=== PATIENT | female | born 1985 | race American Indian/Alaskan Native ===

== ENCOUNTER 2016-07-14 10:18 | Emergency (ER) | payer MEDICAID ==
[2016-07-14 11:53] LABS: Alanine Aminotransferase 13 units/L (7-56); Albumin 4.8 g/dL (3.9-5); Albumin/Globulin Ratio 1.5 %; Alkaline Phosphatase 54 units/L (35-129); Anion Gap 20 mmol/L; BUN/Creatinine Ratio 18.57; Blood Urea Nitrogen 13 mg/dL (7-17); Calcium 9.4 mg/dL (8.4-10.2); Carbon Dioxide 20 mmol/L (22-30); Chloride 98.4 mmol/L (98-107); Glucose 102 mg/dL (65-100); Lipase 10 units/L (13-60); Potassium 3.9 mmol/L (3.6-5.0); Sodium 134 mmol/L (137-145); Total Protein 7.9 g/dL (6.3-8.2)
[2016-07-14 11:58] LABS: Basophils % (Auto) 0.1 % (0.0-1.8); Eosinophils % (Auto) 0.2 % (0.0-4.3); Hematocrit 40.2 % (30.3-42.9); Hemoglobin 13.3 gm/dl (10.1-14.3); Mean Corpuscular HGB Conc 33 % (30-34); Mean Corpuscular Hemoglobin 31 pg (28-32); Mean Corpuscular Volume 95 fl (79-97); Platelet Count 167 K/mm3 (140-440); Red Blood Count 4.23 M/mm3 (3.65-5.03); Red Cell Distribution Width 14.2 % (13.2-15.2); White Blood Count 8.5 K/mm3 (4.5-11.0)
[2016-07-14] MEDS ORDERED: NACL 0.9% 1000 ML 1,000 ML IV ONE (16:57)
[2016-07-14] MEDS ORDERED: ZOFRAN IV ONE (16:57)
[2016-07-14] MEDS ORDERED: DILAUDID IV ONE (16:58)
--- NOTE | 2016-07-14 16:59 | Emergency Department Report ---
ED General Adult HPI - General Chief complaint: Abdominal Pain Stated complaint: VOMITIG/DIARRHEA/ABD PAIN Time Seen by Provider: 07/14/16 16:52 Source: patient, RN notes reviewed, old records reviewed Mode of arrival: Ambulatory Limitations: No Limitations - History of Present Illness Initial comments: This is a 30-year-old female. She reports a past medical history of irritable bowel syndrome. 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 Has a history of tubal ligation. She is not . The patient presents to the ER complaining of cramping abdominal pain, nausea, vomiting and diarrhea. Positive dysuria. Emesis is clear, nonbloody and nonbilious, no hematemesis, reports 6-7 episodes of nausea and vomiting. She describes the diarrhea is watery, loose, thinks she's had 2-3 episodes. Has mild diffuse abdominal cramping. No vaginal discharge. No pelvic pain. She reports her symptoms are typically improved with IV medication, that her symptoms today feel similar to prior episodes of IBS flare/exacerbation. -: Gradual Location: abdomen Quality: aching Consistency: intermittent Improves with: medication Worsens with: movement Associated Symptoms: loss of appetite, nausea/vomiting. denies: confusion, chest pain, cough, diaphoresis - Related Data Previous Rx's Medication Instructions Recorded Last Taken Type Acetaminophen/Codeine [Tylenol #3] 1 tab PO QHS #7 tablet 10/04/14 Unknown Rx Nitrofurantoin [place]/M-Cryst 100 mg PO Q12HR #6 capsule 10/04/14 Unknown Rx [Macrobid CAP] Ondansetron [Zofran ODT TAB] 4 mg PO Q8HR #6 tab.rapdis 10/04/14 Unknown Rx Phenazopyridine HCl [Pyridium] 200 mg PO TID #6 tablet 10/04/14 Unknown Rx Doxycycline [Vibramycin CAP] 100 mg PO Q12HR #20 capsule 10/05/14 Unknown Rx Promethazine [Phenergan TAB] 25 mg PO Q8HR PRN #10 tab 10/05/14 Unknown Rx HYDROcodone/APAP 5-325 [[place] 1 each PO Q6HR PRN #12 tablet 06/10/15 Unknown Rx 5/325] Ondansetron [Zofran Odt] 4 mg PO Q8H PRN #10 tab.rapdis 06/10/15 Unknown Rx Dicyclomine [Bentyl] 10 mg PO QID PRN #20 capsule 07/14/16 Unknown Rx Famotidine [Pepcid] 20 mg PO QDAY #30 tablet 07/14/16 Unknown Rx Ondansetron [Zofran Odt] 4 mg PO QID PRN #20 tab.rapdis 07/14/16 Unknown Rx Promethazine [Phenergan SUPPOS] 50 mg [place] Q6H PRN #20 supp.rect 07/14/16 Unknown Rx Allergies Allergy/AdvReac Type Severity Reaction Status Date / Time amoxicillin AdvReac Hives Verified 10/04/14 11:33 ED Review of Systems ROS: Stated complaint: VOMITIG/DIARRHEA/ABD PAIN Other details as noted in HPI Constitutional: denies: fever, malaise Eyes: denies: vision change ENT: denies: epistaxis Respiratory: denies: cough Cardiovascular: denies: chest pain Gastrointestinal: abdominal pain, nausea, vomiting Genitourinary: dysuria Musculoskeletal: denies: back pain Skin: denies: rash, lesions Neurological: denies: weakness Psychiatric: anxiety ED Past Medical Hx - Past Medical History Additional medical history: IBS - Surgical History Additional Surgical History: Tubal Ligation - Social History Smoking Status: Current Every Day Smoker Substance Use Type: Marijuana - Medications Home Medications: Home Medications Medication Instructions Recorded Confirmed Last Taken Type Acetaminophen/Codeine [Tylenol #3] 1 tab PO QHS #7 tablet 10/04/14 Unknown Rx Nitrofurantoin [place]/M-Cryst 100 mg PO Q12HR #6 capsule 10/04/14 Unknown Rx [Macrobid CAP] Ondansetron [Zofran ODT TAB] 4 mg PO Q8HR #6 tab.rapdis 10/04/14 Unknown Rx Phenazopyridine HCl [Pyridium] 200 mg PO TID #6 tablet 10/04/14 Unknown Rx Doxycycline [Vibramycin CAP] 100 mg PO Q12HR #20 capsule 10/05/14 Unknown Rx Promethazine [Phenergan TAB] 25 mg PO Q8HR PRN #10 tab 10/05/14 Unknown Rx HYDROcodone/APAP 5-325 [[place] 1 each PO Q6HR PRN #12 tablet 06/10/15 Unknown Rx 5/325] Ondansetron [Zofran Odt] 4 mg PO Q8H PRN #10 tab.rapdis 06/10/15 Unknown Rx Dicyclomine [Bentyl] 10 mg PO QID PRN #20 capsule 07/14/16 Unknown Rx Famotidine [Pepcid] 20 mg PO QDAY #30 tablet 07/14/16 Unknown Rx Ondansetron [Zofran Odt] 4 mg PO QID PRN #20 tab.rapdis 07/14/16 Unknown Rx Promethazine [Phenergan SUPPOS] 50 mg [place] Q6H PRN #20 supp.rect 07/14/16 Unknown Rx ED Physical Exam - General Limitations: No Limitations General appearance: alert, in no apparent distress - Head Head exam: Present: atraumatic, normocephalic - Eye Eye exam: Present: normal appearance, EOMI. Absent: nystagmus - ENT ENT exam: Present: normal exam, normal orophraynx, mucous membranes moist, normal external ear exam - Neck Neck exam: Present: normal inspection, full ROM. Absent: tenderness, meningismus - Respiratory Respiratory exam: Present: normal lung sounds bilaterally. Absent: respiratory distress, wheezes, rales, rhonchi, stridor, chest wall tenderness, accessory muscle use, decreased breath sounds, prolonged expiratory - Cardiovascular Cardiovascular Exam: Present: regular rate, normal rhythm, normal heart sounds. Absent: bradycardia, tachycardia, irregular rhythm, systolic murmur, diastolic murmur, rubs, gallop - GI/Abdominal GI/Abdominal exam: Present: soft, normal bowel sounds. Absent: distended, tenderness, guarding, rebound, rigid, pulsatile mass - External exam: Present: normal external exam Speculum exam: Present: normal speculum exam. Absent: cervical discharge, vaginal bleeding Bi-manual exam: Present: normal bi-manual exam, other (during the gynecologic examination, I am escorted by Yee Valentine). Absent: cervical motion tendernes, adnexal tenderness, adnexal mass - Extremities Exam Extremities exam: Present: normal inspection, full ROM, normal capillary refill. Absent: tenderness, pedal edema, joint swelling, calf tenderness - Back Exam Back exam: Present: normal inspection, full ROM. Absent: tenderness, CVA tenderness (R), CVA tenderness (L), muscle spasm, paraspinal tenderness, vertebral tenderness - Neurological Exam Neurological exam: Present: alert, oriented X3, normal gait, other (Extraocular movements intact. Tongue midline. No facial droop. Facial sensation intact to light touch in the V1, V2, V3 distribution bilaterally. 5 and 5 strength in 4 extremities.. Sensation is intact to light touch in 4 extremities.). Absent : motor sensory deficit - Psychiatric Psychiatric exam: Present: anxious, other (prior to being medicated, the patient is laughing inappropriately during the examination. After medication, she is resting currently, playing on a cellular phone.) - Skin Skin exam: Present: warm, dry, intact, normal color. Absent: rash ED Course Vital Signs 07/14/16 07/14/16 07/14/16 11:12 16:03 16:04 Temperature 98.1 F Pulse Rate 102 H 95 H 91 H Respiratory 20 16 22 Rate Blood Pressure 133/72 120/71 O2 Sat by Pulse 100 100 100 Oximetry - Reevaluation(s) Reevaluation #1: 07/14/16 18:16 Differential diagnosis: Constipation, cyclic vomiting syndrome, urinary tract infection, ,, IBS flare/exacerbation Assessment and plan: 30-year-old female with reported history of IBS with abdominal pain, nausea and vomiting. Physical examination is unremarkable. Laboratory studies unremarkable. She is not . She is treated symptomatically. On repeat examination, abdominal exam is benign , tachycardia resolved, she is not , she is tolerating liquid feeds. She is presented to this ER in the past for similar symptoms, given her benign clinical examination, I don't think she requires advanced imaging at this time. She is able to follow up with outpatient gastroenterology. Her urinalysis is pending at this time. 07/14/16 18:16 ED Medical Decision Making - Lab Data Result diagrams: 07/14/16 11:18 07/14/16 11:18 Vital Signs 07/14/16 07/14/16 07/14/16 11:12 16:03 16:04 Temperature 98.1 F Pulse Rate 102 H 95 H 91 H Respiratory 20 16 22 Rate Blood Pressure 133/72 120/71 O2 Sat by Pulse 100 100 100 Oximetry Labs 07/14/16 07/14/16 07/14/16 11:18 11:18 17:11 WBC 8.5 RBC 4.23 Hgb 13.3 Hct 40.2 MCV 95 MCH 31 MCHC 33 RDW 14.2 Plt Count 167 Lymph % (Auto) 4.2 L [place] % (Auto) 7.3 Eos % (Auto) 0.2 Baso % (Auto) 0.1 Lymph # 0.4 L [place] # 0.6 Eos # 0.0 Baso # 0.0 Seg Neutrophils % 88.2 H Seg Neutrophils # 7.5 Sodium 134 L Potassium 3.9 Chloride 98.4 Carbon Dioxide 20 L Anion Gap 20 BUN 13 Creatinine 0.7 Estimated GFR > 60 BUN/Creatinine Ratio 18.57 Glucose 102 H Calcium 9.4 Total Bilirubin 1.00 AST 19 ALT 13 Alkaline Phosphatase 54 Total Protein 7.9 Albumin 4.8 Albumin/Globulin Ratio 1.5 Lipase 10 L HCG, Quant < 2 Critical care attestation.: If time is entered above; I have spent that time in minutes in the direct care of this critically ill patient, excluding procedure time. ED Disposition Clinical Impression: Abdominal pain Disposition: DISCHARGED TO HOME OR SELFCARE Is pt being admited?: No Does the pt Need Aspirin: No Condition: Stable Instructions: Abdominal Pain (ED) Additional Instructions: Cultures were sent today, results will be available the next 3-5 days. Have a primary care doctor or rack puncher contact the medical records department to obtain culture results. Follow-up with a primary care doctor or gastroenterology specialist within the next 7-[address] Rosas is a local primary care doctor. Dr. Jackson is a local gastroenterology specialist. Return to the ER right away with new pain, worsened pain, migration of pain, fevers or chills, intractable nausea or vomiting, inability to tolerate liquid feeds. Referrals: PRIMARY MD BALAJI [Primary Care Provider] - 3-5 Days RAÚL ROSAS MD [Staff Physician] - 3-5 Days VINCENT JACKSON MD [Staff Physician] - 3-5 Days
[2016-07-14 18:45] LABS: Bilirubin,Urine NEG (Negative); Blood,Urine LG (Negative); Ketones,Urine 20 mg/dL (Negative); Leukocyte Esterase,Urine TR (Negative); Mucus,Urine 3+ /HPF; Nitrite,Urine NEG (Negative); Urobilinogen,Urine < 2.0 mg/dL (<2.0)
[2016-07-14 19:18] VITALS: BP 126/72
== END 2016-07-14 19:35 | disposition home or self-care (01) ==
LOC: ED 10:18
DX: R10.9 Unspecified abdominal pain (principal); F17.200 Nicotine dependence, unspecified, uncomplicated
CPT/HCPCS: 36415; 80053; 81001; 81025; 83690; 84702; 85025; 87210; 87591; 96361; 96374; 96375; 99284; J1170; J2405; J7030

== ENCOUNTER 2016-11-14 05:44 | Emergency (ER) | payer SELFPAY ==
[2016-11-14 06:59] LABS: Basophils % (Auto) 0.6 % (0.0-1.8); Eosinophils % (Auto) 0.7 % (0.0-4.3); Hematocrit 37.7 % (30.3-42.9); Hemoglobin 12.6 gm/dl (10.1-14.3); Mean Corpuscular HGB Conc 33 % (30-34); Mean Corpuscular Hemoglobin 31 pg (28-32); Mean Corpuscular Volume 94 fl (79-97); Platelet Count 161 K/mm3 (140-440); Red Blood Count 4.03 M/mm3 (3.65-5.03); Red Cell Distribution Width 13.9 % (13.2-15.2); White Blood Count 8.3 K/mm3 (4.5-11.0)
[2016-11-14 07:16] LABS: Anion Gap 20 mmol/L; Blood Urea Nitrogen 9 mg/dL (7-17); Calcium 9.3 mg/dL (8.4-10.2); Carbon Dioxide 20 mmol/L (22-30); Chloride 103.1 mmol/L (98-107); Glucose 116 mg/dL (65-100); Potassium 3.4 mmol/L (3.6-5.0); Sodium 140 mmol/L (137-145)
[2016-11-14] MEDS ORDERED: NACL 0.9% 1000 ML 1,000 ML IV ONE (07:40)
[2016-11-14] MEDS ORDERED: ZOFRAN IV ONE (07:40)
[2016-11-14] MEDS ORDERED: MORPHINE IV ONE (07:44)
[2016-11-14] MEDS ORDERED: ATIVAN IV ONE (07:45)
[2016-11-14] MEDS ORDERED: BENADRYL IV ONE (07:45)
--- NOTE | 2016-11-14 07:52 | Emergency Department Report ---
HPI - General Chief Complaint: Nausea/Vomiting/Diarrhea Time Seen by Provider: 11/14/16 07:39 - HPI HPI: Room 19 The patient is a 31-year-old female presented with a chief complaint of abdominal pain. Patient states she has a history of irritable bowel syndrome and it has "flared up" starting last night at approximately 21:30. Patient admits to diffuse abdominal pain associated with nausea vomiting and diarrhea. Patient denies any history of fever. The patient states her presentation is consistent with her previous bouts of irritable bowel syndrome. Location: Abdomen Duration: Constant since 2129 Quality: Pain consistent with previous bouts of IBS Severity: 10/20 Modifying factors: [see above] Context: [see above] Mode of transportation: Unknown ED Past Medical Hx - Past Medical History Previous Medical History?: Yes Additional medical history: IBS - Surgical History Additional Surgical History: Tubal Ligation - Family History Family history: no significant - Social History Smoking Status: Current Every Day Smoker (1/3 pack per day) Substance Use Type: None (denies illicit drug use) - Medications Home Medications: Home Medications Medication Instructions Recorded Confirmed Last Taken Type Acetaminophen/Codeine [Tylenol #3] 1 tab PO QHS #7 tablet 10/04/14 Unknown Rx Nitrofurantoin [place]/M-Cryst 100 mg PO Q12HR #6 capsule 10/04/14 Unknown Rx [Macrobid CAP] Ondansetron [Zofran ODT TAB] 4 mg PO Q8HR #6 tab.rapdis 10/04/14 Unknown Rx Phenazopyridine HCl [Pyridium] 200 mg PO TID #6 tablet 10/04/14 Unknown Rx Doxycycline [Vibramycin CAP] 100 mg PO Q12HR #20 capsule 10/05/14 Unknown Rx Promethazine [Phenergan TAB] 25 mg PO Q8HR PRN #10 tab 10/05/14 Unknown Rx HYDROcodone/APAP 5-325 [[place] 1 each PO Q6HR PRN #12 tablet 06/10/15 Unknown Rx 5/325] Ondansetron [Zofran Odt] 4 mg PO Q8H PRN #10 tab.rapdis 06/10/15 Unknown Rx Dicyclomine [Bentyl] 10 mg PO QID PRN #20 capsule 07/14/16 Unknown Rx Famotidine [Pepcid] 20 mg PO QDAY #30 tablet 07/14/16 Unknown Rx Ondansetron [Zofran Odt] 4 mg PO QID PRN #20 tab.rapdis 07/14/16 Unknown Rx Promethazine [Phenergan SUPPOS] 50 mg ID Q6H PRN #20 supp.rect 07/14/16 Unknown Rx Metoclopramide [Reglan] 10 mg PO TID #30 tab 11/14/16 Unknown Rx Promethazine [Phenergan] 25 mg ID Q6HR PRN #5 supp.rect 11/14/16 Unknown Rx traMADol [Ultram] 50 mg PO Q6HR PRN #14 tablet 11/14/16 Unknown Rx ED Review of Systems ROS: Stated complaint: STOMACH PAIN/VOMITING Other details as noted in HPI Comment: All other systems reviewed and negative Constitutional: denies: chills, fever Eyes: denies: eye pain, eye discharge, vision change ENT: denies: ear pain, throat pain Respiratory: denies: cough, shortness of breath, wheezing Cardiovascular: denies: chest pain, palpitations Endocrine: no symptoms reported Gastrointestinal: abdominal pain, nausea, vomiting, diarrhea Genitourinary: denies: urgency, dysuria, discharge Musculoskeletal: denies: back pain, joint swelling, arthralgia Skin: denies: rash, lesions Neurological: denies: headache, weakness, paresthesias Psychiatric: denies: anxiety, depression Hematological/Lymphatic: denies: easy bleeding, easy bruising Physical Exam - Physical Exam Vital Signs: Vital Signs 11/14/16 11/14/16 06:16 07:07 Temperature 97.5 F L 97.8 F Pulse Rate 85 78 Respiratory 20 18 Rate Blood Pressure 139/88 Blood Pressure 128/50 [Left] O2 Sat by Pulse 99 100 Oximetry Physical Exam: GENERAL: The patient is well-developed well-nourished female writhing around on the bed. In moderate discomfort. [] HEENT: Normocephalic. Atraumatic. Extraocular motions are intact. Patient has moist mucous membranes. NECK: Supple. Trachea midline CHEST/LUNGS: Clear to auscultation. There is no respiratory distress noted. HEART/CARDIOVASCULAR: Regular. There is no tachycardia. There is no gallop rub or murmur. ABDOMEN: Abdomen is soft, without tenderness to palpation with the stethoscope the patient complains of significant pain. Patient has normal bowel sounds. There is no abdominal distention. SKIN: There is no rash. There is no edema. There is no diaphoresis. NEURO: The patient is awake, alert, and oriented. The patient is writhing around on the stretcher and dramatic fashion. Patient moves all extremities well. The patient has no focal neurologic deficits. The patient has normal speech MUSCULOSKELETAL: There is no evidence of acute injury. ED Course Vital Signs 11/14/16 11/14/16 06:16 07:07 Temperature 97.5 F L 97.8 F Pulse Rate 85 78 Respiratory 20 18 Rate Blood Pressure 139/88 Blood Pressure 128/50 [Left] O2 Sat by Pulse 99 100 Oximetry - Reevaluation(s) Reevaluation #1: 11/14/16 10:38 Patient resting comfortably. Patient was awakened and advised of the negative workup. Patient verbalized understanding ED Medical Decision Making - Lab Data Result diagrams: 11/14/16 Unknown 11/14/16 Unknown Laboratory Tests 11/14/16 11/14/16 11/14/16 07:00 07:00 07:09 WBC RBC Hgb Hct MCV MCH MCHC RDW Plt Count Lymph % (Auto) [place] % (Auto) Eos % (Auto) Baso % (Auto) Lymph # [place] # Eos # Baso # Seg Neutrophils % Seg Neutrophils # Sodium Potassium Chloride Carbon Dioxide Anion Gap BUN Creatinine Estimated GFR BUN/Creatinine Ratio Glucose POC Glucose 110 H Calcium Total Bilirubin 0.40 Direct Bilirubin < 0.2 AST 24 ALT 15 Alkaline Phosphatase 53 Total Protein 7.9 Albumin 4.7 Albumin/Globulin Ratio 1.5 Lipase 11 L HCG, Qual 11/14/16 11/14/16 11/14/16 Unknown Unknown Unknown WBC 8.3 RBC 4.03 Hgb 12.6 Hct 37.7 MCV 94 MCH 31 MCHC 33 RDW 13.9 Plt Count 161 Lymph % (Auto) 10.0 L [place] % (Auto) 4.1 Eos % (Auto) 0.7 Baso % (Auto) 0.6 Lymph # 0.8 L [place] # 0.3 Eos # 0.1 Baso # 0.0 Seg Neutrophils % 84.6 H Seg Neutrophils # 7.0 Sodium 140 Potassium 3.4 L Chloride 103.1 Carbon Dioxide 20 L Anion Gap 20 BUN 9 Creatinine 0.6 L Estimated GFR > 60 BUN/Creatinine Ratio 15.00 Glucose 116 H POC Glucose Calcium 9.3 Total Bilirubin Direct Bilirubin AST ALT Alkaline Phosphatase Total Protein Albumin Albumin/Globulin Ratio Lipase HCG, Qual Negative - Radiology Data Radiology results: report reviewed (CT abdomen and pelvis), image reviewed (CT abdomen and pelvis) CT abdomen and pelvis (read by radiologist)-no abdominal pathology identified - Differential Diagnosis irritable bowel syndrome, gastroparesis, malingering Critical care attestation.: If time is entered above; I have spent that time in minutes in the direct care of this critically ill patient, excluding procedure time. ED Disposition Clinical Impression: Acute abdominal pain Disposition: - TO HOME OR SELFCARE Is pt being admited?: No Does the pt Need Aspirin: No Condition: Stable Instructions: Acute Abdominal Pain (ED) Additional Instructions: Return to the emergency department immediately should you develop worsening symptoms, fever, inability to tolerate food or liquid or any other concerns. Prescriptions: Metoclopramide [Reglan] 10 mg PO TID #30 tab Promethazine [Phenergan] 25 mg ID Q6HR PRN #5 supp.rect PRN Reason: Vomiting traMADol [Ultram] 50 mg PO Q6HR PRN #14 tablet PRN Reason: Pain Referrals: PRIMARY CARE, [Primary Care Provider] - 3-5 Days LANDON HOOPER MD [Staff Physician] - 3-5 Days (Dr. Hooper is a churn driller. Please follow up with him for further evaluation) Time of Disposition: 10:38
[2016-11-14 08:58] LABS: Alanine Aminotransferase 15 units/L (7-56); Albumin 4.7 g/dL (3.9-5); Albumin/Globulin Ratio 1.5 %; Alkaline Phosphatase 53 units/L (35-129); Total Protein 7.9 g/dL (6.3-8.2)
[2016-11-14 09:18] LABS: Bilirubin,Direct < 0.2 mg/dL (0-0.2)
--- NOTE | 2016-11-14 10:25 | Cat Scan Report ---
CT abdomen and pelvis with contrast: Diffuse abdominal pain. History of IBS. Following IV contrast administration transverse images are obtained from the lower chest to the ischium with coronal and sagittal 2-D reformatted images. The visualized lung bases are clear. The abdominal and retroperitoneal organs are unremarkable. The bowel is unopacified and difficult to fully evaluate due to the virtual lack of mesenteric fat. No evidence of bowel dilatation and no inflammatory changes however are identified. There is no obvious adenopathy. Sections through the pelvis demonstrate a 15 mm right ovarian cyst. There is some gas in what appears to be the cervix possibly due to instrumentation. Impression: No abdominal pathology identified.
[2016-11-14 11:24] VITALS: BP 86/53
== END 2016-11-14 11:24 | disposition home or self-care (01) ==
LOC: ED 05:44
DX: R10.9 Unspecified abdominal pain (principal); F17.200 Nicotine dependence, unspecified, uncomplicated
CPT/HCPCS: 36415; 74177; 80048; 80074; 82962; 83690; 84703; 85025; 96361; 96374; 96375; 99284; J1200; J2060; J2270; J2405; J7030; Q9967

== ENCOUNTER 2019-03-18 17:40 | Emergency (ER) | payer SELFPAY ==
[2019-03-18 17:46] VITALS: BP 118/68
--- NOTE | 2019-03-18 17:55 | Emergency Department Report ---
Blank Doc - Documentation Documentation: 33-year-old female that presents with generalized abdominal pain and n/v. This initial assessment/diagnostic orders/clinical plan/treatment(s) is/are subject to change based on patient's health status, clinical progression and re- assessment by fellow clinical providers in the ED. Further treatment and workup at subsequent clinical providers discretion. Patient/guardians urged not to elope from the ED as their condition may be serious if not clinically assessed and managed. Initial orders include: 1- Patient sent to [facility] for further evaluation and treatment 2- labs 3- UA 4- zofran
[2019-03-18] MEDS ORDERED: ONDANSETRON 4 MG ODT TAB PO ONE (17:56)
[2019-03-18 19:40] LABS: Basophils % (Auto) 0.4 % (0.0-1.8); Eosinophils % (Auto) 0.1 % (0.0-4.3); Hematocrit 38.4 % (30.3-42.9); Hemoglobin 12.9 gm/dl (10.1-14.3); Lymphocytes # (Auto) 0.7 K/mm3 (1.2-5.4); Lymphocytes % (Auto) 9.4 % (13.4-35.0); Mean Corpuscular HGB Conc 34 % (30-34); Mean Corpuscular Volume 95 fl (79-97); Monocytes # (Auto) 0.4 K/mm3 (0.0-0.8); Platelet Count 190 K/mm3 (140-440); Red Blood Count 4.03 M/mm3 (3.65-5.03); Red Cell Distribution Width 13.9 % (13.2-15.2)
[2019-03-18 19:49] LABS: Alanine Aminotransferase 9 units/L (7-56); Albumin 4.9 g/dL (3.9-5); BUN/Creatinine Ratio 15; Blood Urea Nitrogen 9 mg/dL (7-17); Calcium 9.6 mg/dL (8.4-10.2); Hemolysis Index 5
== END 2019-03-18 21:58 | disposition left against medical advice (07) ==
LOC: ED 17:40
DX: R10.84 Generalized abdominal pain (principal); R11.2 Nausea with vomiting, unspecified
CPT/HCPCS: 36415; 80053; 83690; 84703; 85025; Q0162